=== PATIENT | male | born 1965 | race Caucasian/White ===

== ENCOUNTER 2016-06-17 00:14 | Emergency (ER) | payer OTHER ==
[~2016-06-17] VITALS: Ht 188 cm; Wt 113.6 kg
[2016-06-17 00:20] VITALS: BP 130/77; PULSE 60; RESP 16; O2SAT 98
--- NOTE | 2016-06-17 01:21 | ED.REPORT ---
HPI-Extremity Problem Upper Date of Service Jun 17, 2016 ED Provider: Doc,Ed MD The patient is a 50 year old male with history of DM and IV drug use who presents to the ED complaining of an abscess to his left hand for the last two days. He states that he suffered a crushing injury to his left hand from a board while working earlier this week. He is left handed. His last tetanus vaccine was three months ago. He denies injecting into his hands. He denies loss of ROM, loss of sensation/motor ability, or any other symptoms at this time. Nursing Notes Stated Complaint: LT HAND SWELLING, ABSCESS Chief Complaint: Skin Rash/Abscess Nursing Notes Reviewed: Yes Allergies: Coded Allergies: No Known Allergies (Unverified , 06/17/16) Scheduled Clindamycin (Clindamycin) 300 Mg Capsule 300 MG PO QID General Time Seen by MD: 01:21 Chief Complaint Hand Injury left Hx Obtained From: Patient Arrived By: Walk-in Onset Occurred: 2 days ago Symptom Duration: Since onset Location: : Hand left Quality: Painful Severity: Current: Mild Severity: Maximum: Moderate Immunizations: Tetanus up to date Recent Healthcare: No recent doctor visit, No recent hospitalization Similar Sx Previous: No Past Medical History Past Medical History DM IV drug use Social History Drug Use: IV drugs Ambulatory Status Independent Review of Systems Constitutional: Denies: Chills, Fatigue Musculoskeletal: Reports: Extremity pain (left hand), Extremity swelling (left hand), Denies: Joint pain, Joint swelling, Neck pain Neurologic: Denies: Numbness, Weakness Complete sys rev & neg: except as marked. Physical Exam Initial Vital Signs Vital Signs (First) Date Time Temp Pulse Resp B/P Pulse Ox O2 Delivery O2 Flow Rate FiO2 06/17/16 00:20 37.3 60 16 130/77 98 Room Air Initial VS: Reviewed General/Constitutional: Well-developed, Well-nourished Head / Eyes: Atraumatic, Normocephalic, PERRL ENT: Mucous membranes moist, Conjunctiva normal, No scleral icterus Neck: Supple, Non-tender, Full range of motion Respiratory: Breath sounds normal, Clear to auscultation, No respiratory distress Cardiovascular: Regular rate & rhythm, Heart sounds normal, Intact distal pulses Abdomen / GI: Soft, Non-tender, No guarding, No rebound, No distention Lower Extremities: Vascular intact, Neuro intact, No swelling, No tenderness Neurologic: Alert, Oriented, Nonfocal Psychiatric: Mood/affect normal, Behavior normal, Normal thought content Wrist/hand: Large cellulitic area over dorsal aspect of left hand. Large, 2x2 protruding abscess with large area of surrounding erythema. Full range of motion. Right hand atraumatic Interpretation & Diagnostics Lab Results Interpretation Test 06/17/16 02:20 Hold Purple Top Tube Received (Received) Hold Blue Top Tube Received (Received) Hold Red Top Tube Received (Received) Hold [place] Top Tube Received (Received) Hold [place] Top Tube Received (Received) Re-Eval/Medical Decision Med Decision/Clinical Course 50-year-old male with past medical history of insulin-dependent diabetes and IV drug abuse here with left hand swelling. Differential diagnosis includes superficial abscess versus cellulitis versus deep space infection versus flexor tenosynovitis. When I discussed the possibility with the patient that he would require transfer to [facility] for higher level of care, he decided to leave AGAINST MEDICAL ADVICE. He is aware of the risks of leaving AGAINST MEDICAL ADVICE. Given I am extremely concerned for the viability of his hand with his physical exam, I have given him a dose of clindamycin in the emergency department, and drawn blood cultures. He states he will go straight to [facility] first thing in the morning. Source of Hx: Old records Re-Evaluation/Progress : Time of Eval: 01:57 Re-Evaluation/Progress Note: Discussed need for transfer to [facility]. The patient wishes to leave AMA and will check into [facility] tomorrow morning. Discussed risks of leaving AMA. The patient understands these risks and wishes to leave. Discussed need for follow-up. All questions addressed. Counseled Regarding: Diagnosis, Need for follow-up, When/why to return to ED Discharge & Departure Impression: Primary Impression: Abscess Additional Impression: Cellulitis Site of cellulitis: other site Qualified Code: L03.818 - Cellulitis of other sites Disposition: AGAINST MEDICAL ADVICE Discharge Condition All VS Reviewed: Yes Condition: Stable Additional Instructions: Your emergency department evaluation today included a consultation and physical examination. Your left hand is badly infected. This will likely require surgery with a hand specialist which is beyond the scope of what we can do in the ED tonight. While you have decided to leave against medical advice, it is imperative that you report to [facility]'s emergency department as soon as you possibly can for further evaluation. I have written you a course of Clindamycin to help treat your infection. I have given you the first dose in the emergency department, please begin taking this tomorrow. Return to the emergency department if any of your symptoms worsen. I wish you the best in your follow-up with [facility]. Referrals: KYLER BAE MD (PCP) Scribe Attestation Portions of this note were transcribed by Priya Acevedo. I, Dr. Magana, personally performed the history, physical exam, and medical decision-making; I reviewed and confirmed the accuracy of the information in the transcribed note. Signed by: Leyla Carver, 06/17/16, 02:01. copies to: KYLER BAE MD, Rebecca A MD Jun 17, 2016 01:21 PRIYA ACEVEDO Jun 17, 2016 02:02
[2016-06-17] MEDS ORDERED: 0.9% Sodium Chloride 100 ML ONE (02:09)
[2016-06-17] MEDS ORDERED: Clindamycin Inj 900 MG in IV Premix 1 EACH IV ONE (02:10)
[2016-06-17] MEDS ORDERED: CLIN-78 PO (02:17)
[2016-06-17 02:55] VITALS: BP 121/82; PULSE 62; RESP 18; O2SAT 97
== END 2016-06-17 02:59 | disposition left against medical advice (07) ==
LOC: SED 00:14
DX: L02.512 Cutaneous abscess of left hand (principal); L03.114 Cellulitis of left upper limb; F11.10 Opioid abuse, uncomplicated; F17.210 Nicotine dependence, cigarettes, uncomplicated; E11.9 Type 2 diabetes mellitus without complications; Z79.4 Long term (current) use of insulin